=== PATIENT | female | born 1935 | race Caucasian/White ===

== ENCOUNTER 2016-08-08 15:38 | Emergency (ER) | payer MEDICARE | END 2016-08-08 17:26 | disposition home or self-care (01) | LOC: ER 15:38 | DX: S39.012A Strain of muscle, fascia and tendon of lower back, initial encounter (principal); J45.909 Unspecified asthma, uncomplicated; F17.210 Nicotine dependence, cigarettes, uncomplicated; Z79.82 Long term (current) use of aspirin; X50.1XXA Overexertion from prolonged static or awkward postures, initial encounter; Y92.009 Unspecified place in unspecified non-institutional (private) residence as the place of occurrence of the external cause ==